=== PATIENT | male | born 1985 | race Caucasian/White ===

== ENCOUNTER 2016-07-23 19:11 | Observation (INO) | payer OTHER, BC ==
--- NOTE | 2016-07-23 19:59 | ED ---
General Adult HPI - General Chief complaint: Eye Problems Stated complaint: accidental overdose Time Seen by Provider: 07/23/16 19:37 Source: patient, RN notes reviewed Mode of arrival: ambulatory Limitations: no limitations - History of Present Illness Initial comments: Patient 31-year-old male who presents emergency room today with a chief complaint of accidental ingestion of antifreeze. Patient does admit that he was helping a friend work on a car when one of the clips broke and antifreeze and got into his eyes and also into his nose and his mouth. He states he did swallow one mouthful of antifreeze. Patient does admit that he try to wash out his eyes. He states he called poison neutral was directed to the emergency room. Patient does admit that she's has burning to his eyes and is very thirsty. He denies any other complaints or symptoms. Patient denies any recent fever, chills, shortness of breath, chest pain, back pain, abdominal pain, nausea or vomiting, numbness or tingling, dysuria or hematuria, constipation or diarrhea, headaches or visual changes, or any other complaints. - Related Data Home Medications Medication Instructions Recorded Confirmed Fluticasone Nasal [place] [Flonase 1 spray EA NOSTRIL BID PRN 07/23/16 07/23/16 Nasal Ring[place]] Loperamide [Imodium] 2 mg PO QID PRN 07/23/16 07/23/16 Menthol [Bengay] 1 applic TOPICAL DAILY PRN 07/23/16 07/23/16 Allergies Allergy/AdvReac Type Severity Reaction Status Date / Time No Known Allergies Allergy Verified 07/23/16 21:23 Review of Systems ROS Statement: Those systems with pertinent positive or pertinent negative responses have been documented in the HPI. ROS Other: All systems not noted in ROS Statement are negative. Past Medical History Past Medical History: No Reported History Additional Past Medical History / Comment(s): "Digestive issues" History of Any Multi-Drug Resistant Organisms: MRSA Date of last positivie culture/infection: 2005 MDRO Source:: hand Past Surgical History: Adenoidectomy, Orthopedic Surgery, Tonsillectomy Additional Past Surgical History / Comment(s): Nose Past Psychological History: Anxiety, Depression, PTSD Smoking Status: Current every day smoker Past Alcohol Use History: None Reported Past Drug Use History: Marijuana General Exam - General Exam Comments Initial Comments: General: The patient is awake and alert, in no distress, and does not appear acutely ill. Eye: Pupils are equal, round and reactive to light, extra-ocular movements are intact. No nystagmus. There is normal conjunctiva bilaterally. No signs of icterus. Ears, nose, mouth and throat: There are moist mucous membranes and no oral lesions. Neck: The neck is supple, there is no tenderness or JVD. Cardiovascular: There is a regular rate and rhythm. No murmur, rub or gallop is appreciated. Respiratory: Lungs are clear to auscultation, respirations are non-labored, breath sounds are equal. No wheezes, stridor, rales, or rhonchi. Gastrointestinal: Soft, non-distended, non-tender abdomen without masses or organomegaly noted. There is no rebound or guarding present. No CVA tenderness. Bowel sounds are unremarkable. Musculoskeletal: Normal ROM, no tenderness. Strength 5/5. Sensation intact. Pulses equal bilaterally 2+. Neurological: A&O x 3. CN II-XII intact, There are no obvious motor or sensory deficits. Coordination appears grossly intact. Speech is normal. Skin: Skin is warm and dry and no rashes or lesions are noted. Psychiatric: Cooperative, appropriate mood & affect, normal judgment. Limitations: no limitations Course Vital Signs 07/23/16 07/23/16 07/23/16 19:21 21:16 21:40 Temperature 98.0 F 98.9 F Pulse Rate 100 115 H 131 H Respiratory 18 18 20 Rate Blood Pressure 155/100 162/84 162/84 O2 Sat by Pulse 99 100 100 Oximetry 07/23/16 23:28 Temperature Pulse Rate 109 H Respiratory 18 Rate Blood Pressure 147/83 O2 Sat by Pulse 99 Oximetry - Reevaluation(s) Reevaluation #1: 07/23/16 19:55 did discuss case with poison control. They recommend starting Antizol here in the emergency room at 15 mg/kg. Recommends sending a toxic alcohol panel which is a send out panel and has been communicated to the lab. They state they will send it in approximately we will have results in 4-5 hours. poison control recommends starting Antizol which they state will give us 12 hours of coverage waiting for ethylene glycol panel to return. Patient has been flushed with a Tai's lens with both eyes. EKG Findings - EKG Comments: EKG Findings:: EKG performed at 2123: Shows sinus tachycardia 110 bpm. NM interval 140. QRS 90. QT/QTc is 330/446. No acute ST changes. Medical Decision Making - Medical Decision Making Patient's left and right eye pH checked his 7.0. The eyes were also stained with fluorescein shows no abrasions or foreign bodies. Patient's labs been reviewed here. Still waiting for ethylene glycol level. At this time is currently pending waiting for transfer to another lab. Patient case discussed in detail with attending physician Dr. Leos. At this time patient will be continued on Antizol until ethlyl Glycol results. Case was discussed with Maureen parent coach who will admit for Dr. Lambert group. - Lab Data Result diagrams: 07/23/16 20:50 07/23/16 20:50 Lab Results 07/23/16 07/23/16 Range/Units 20:50 20:50 WBC 7.9 (3.8-10.6) k/uL RBC 5.30 (4.30-5.90) m/uL Hgb 16.6 (13.0-17.5) gm/dL Hct 46.3 (39.0-53.0) % MCV 87.3 (80.0-100.0) fL MCH 31.3 (25.0-35.0) pg MCHC 35.9 (31.0-37.0) g/dL RDW 12.9 (11.5-15.5) % Plt Count 266 (150-450) k/uL Neutrophils % 55 % Lymphocytes % 35 % Monocytes % 8 % Eosinophils % 1 % Basophils % 1 % Neutrophils # 4.3 (1.3-7.7) k/uL Lymphocytes # 2.7 (1.0-4.8) k/uL Monocytes # 0.6 (0-1.0) k/uL Eosinophils # 0.1 (0-0.7) k/uL Basophils # 0.0 (0-0.2) k/uL Sodium 136 L (137-145) mmol/L Potassium 3.7 (3.5-5.1) mmol/L Chloride 101 (98-107) mmol/L Carbon Dioxide 23 (22-30) mmol/L Anion Gap 12 mmol/L BUN 10 (9-20) mg/dL Creatinine 1.00 (0.66-1.25) mg/dL Est GFR (MDRD) Af Amer >60 (>60 ml/min/1.73 sqM) Est GFR (MDRD) Non-Af >60 (>60 ml/min/1.73 sqM) Glucose 92 (74-99) mg/dL Calcium 9.8 (8.4-10.2) mg/dL Total Bilirubin 1.2 (0.2-1.3) mg/dL AST 29 (17-59) U/L ALT 35 (21-72) U/L Alkaline Phosphatase 81 (38-126) U/L Total Protein 8.3 H (6.3-8.2) g/dL Albumin 5.1 H (3.5-5.0) g/dL Disposition Clinical Impression: Ethylene glycol poisoning Disposition: ADMITTED IP TO THIS HOSP Condition: Stable Referrals: Hayden Griffith DO [Primary Care Provider] - 1-2 days Time of Disposition: 23:01
[2016-07-23] MEDS ORDERED: FOMEPIZOLE 1 GM/ML 1.5 ML VIAL IV STA (20:11)
[2016-07-23] MEDS ORDERED: SODIUM CHLORIDE 0.9% IV ONE (20:30)
[2016-07-23] MEDS ORDERED: FOMEPIZOLE 1 GM in SODIUM CHLORIDE 0.9% 100 ML IV ONE (20:30)
[2016-07-23] MEDS ORDERED: FOMEPIZOLE IV ONE (20:30)
[2016-07-23 21:08] LABS: Basophils % (A) 1 %; CH 32.6; CHCM 37.4; Eosinophils # (A) 0.1 k/uL (0-0.7); Eosinophils % (A) 1 %; HCT 46.3 % (39.0-53.0); HDW 2.49; HGB 16.6 gm/dL (13.0-17.5); Luc # (Auto) 0.14; Luc % (Auto) 2; Lymphocytes # (A) 2.7 k/uL (1.0-4.8); Lymphocytes % (A) 35 %; MCH 31.3 pg (25.0-35.0); MCHC 35.9 g/dL (31.0-37.0); MCV 87.3 fL (80.0-100.0); Mean Platelet Volume 6.8; Monocytes # (A) 0.6 k/uL (0-1.0); Monocytes % (A) 8 %; Neutrophils # (A) 4.3 k/uL (1.3-7.7); Neutrophils % (A) 55 %; RDW 12.9 % (11.5-15.5); WBC 7.9 k/uL (3.8-10.6); WBC (Perox) 7.82
[2016-07-23] MEDS ORDERED: SODIUM CHLORIDE 0.9% 1,000 ML IV STA (21:13)
[2016-07-23 21:17] LABS: ALT 35 U/L (21-72); AST 29 U/L (17-59); Alkaline Phosphatase 81 U/L (38-126); Anion Gap 12 mmol/L; Blood Urea Nitrogen 10 mg/dL (9-20); Calcium 9.8 mg/dL (8.4-10.2); Carbon Dioxide 23 mmol/L (22-30); Chloride 101 mmol/L (98-107); Glucose 92 mg/dL (74-99); Non-African American GFR(MDRD) >60 (>60 ml/min/1.73 sqM); Potassium 3.7 mmol/L (3.5-5.1); Sodium 136 mmol/L (137-145); Total Bilirubin 1.2 mg/dL (0.2-1.3); Total Protein 8.3 g/dL (6.3-8.2)
[2016-07-23] MEDS ORDERED: NALOXONE 0.4 MG/ML 1 ML VIAL IV PRN (23:03)
[2016-07-23] MEDS ORDERED: ONDANSETRON 4 MG/2 ML VIAL IVP PRN (23:03)
[2016-07-23] MEDS ORDERED: LORazepam 2 MG/ML SYRINGE IV PRN (23:03)
[2016-07-23] MEDS: SODIUM CHLORIDE 0.9% 1,000 ML IV ONE (23:27)
[2016-07-24 00:39] VITALS: RESP 16
[2016-07-24 01:00] VITALS: BMI 22.7
[2016-07-24] MEDS ORDERED: PNEUMOCOCCAL VACC-PNEUMOVAX 23 25 MCG/0.5 ML VIAL IM ONE (02:05)
[2016-07-24] MEDS: SODIUM CHLORIDE 0.9% 1,000 ML IV ONE (02:26)
[2016-07-24 07:13] LABS: Mis test requested (Blood) Toxic Alcohol Panel
[2016-07-24 07:13] LABS: Basophils % (A) 1 %; CH 31.6; CHCM 34.7; Eosinophils # (A) 0.1 k/uL (0-0.7); Eosinophils % (A) 2 %; HCT 44.5 % (39.0-53.0); HDW 2.34; Luc # (Auto) 0.11; Luc % (Auto) 2; Lymphocytes # (A) 2.4 k/uL (1.0-4.8); Lymphocytes % (A) 37 %; MCH 30.9 pg (25.0-35.0); MCHC 33.8 g/dL (31.0-37.0); MCV 91.4 fL (80.0-100.0); Mean Platelet Volume 6.9; Monocytes # (A) 0.4 k/uL (0-1.0); Monocytes % (A) 7 %; Neutrophils # (A) 3.4 k/uL (1.3-7.7); Neutrophils % (A) 53 %; RBC 4.86 m/uL (4.30-5.90); RDW 13.1 % (11.5-15.5); WBC 6.5 k/uL (3.8-10.6); WBC (Perox) 6.44
[2016-07-24 07:21] LABS: ALT 34 U/L (21-72); AST 24 U/L (17-59); Alkaline Phosphatase 56 U/L (38-126); Anion Gap 8 mmol/L; Blood Urea Nitrogen 12 mg/dL (9-20); Calcium 8.7 mg/dL (8.4-10.2); Carbon Dioxide 23 mmol/L (22-30); Chloride 110 mmol/L (98-107); Glucose 90 mg/dL (74-99); Non-African American GFR(MDRD) >60 (>60 ml/min/1.73 sqM); Potassium 4.7 mmol/L (3.5-5.1); Sodium 141 mmol/L (137-145); Total Protein 6.8 g/dL (6.3-8.2)
[2016-07-24] MEDS ORDERED: FOMEPIZOLE IV SCH (09:00)
[2016-07-24] MEDS ORDERED: SODIUM CHLORIDE 0.9% IV SCH (09:00)
[2016-07-24] MEDS ORDERED: FOMEPIZOLE 1 GM/ML 1.5 ML VIAL IV SCH (09:00)
[2016-07-24] MEDS ORDERED: ACETAMINOPHEN TAB 500 MG TAB PO STA (12:25)
[2016-07-24 16:21] VITALS: BP 139/79; PULSE 85; TEMP 98.2
--- NOTE | 2016-07-24 21:18 | HP ---
DATE OF ADMISSION: 07/23/2016 CHIEF COMPLAINT: Accidental overdose of antifreeze. HISTORY OF ILLNESS: Mr. Doty is a 31-year-old male without significant past medical history. He came to the ER with accidental ingestion of antifreeze. Patient apparently had been working and was helping a friend replacing a water pump; suddenly it blew open and he was under the car and something was gushing into his mouth and his nose. He states that he did swallow one mouthful of antifreeze. The patient tried to wash his mouth and eyes. He called Poison Control, who directed him to the ER. Patient did have some burning sensation in his eyes and felt very thirsty. Otherwise, patient denied any recent illnesses. No sick contacts at home. Patient denied any intentional overdose. No hematuria or dysuria. No abdominal pain. No headache or dizziness or lightheadedness. All other review of systems are negative except as above. Patient did not have an elevated ethylene glycol level in the serum screen. PAST MEDICAL HISTORY: None except smoking. PAST SURGICAL HISTORY: 1. Adenoidectomy. 2. Orthopedic surgery. 3. Nose surgery. 4. Tonsillectomy. PSYCHOSOCIAL HISTORY: Anxiety, depression, PTSD. SOCIAL HISTORY: Patient is currently an everyday smoker; smokes 1 pack per day. Occasional alcohol use. Denied any drugs. Patient does use marijuana. ALLERGIES: NO KNOWN DRUG ALLERGIES. FAMILY HISTORY: Denied any history of hypertension, diabetes mellitus or premature heart disease in the family. No home medications except nasal spray, Imodium p.r.n. and BenGay topically p.r.n. PHYSICAL EXAMINATION: A 31-year-old male lying in the bed comfortably. Awake, alert, oriented x3. Appears in no distress. VITALS: Blood pressure is 142/80. Pulse is 111, respiration 18, temperature afebrile, pulse ox 97% on room air. HEENT: Atraumatic, normocephalic. Neck is supple. No JVD. CVS: S1, S2 heard. No murmurs. No gallop. No rub. LUNGS: Bilateral air entry is present. No wheezing. No crackles. Non-labored breathing. ABDOMEN: Soft, nontender. Bowel sounds present. SELF CONTAINED [employer] TE[employer]ER: Awake, alert, oriented x3. No focal deficit. Cranial nerves grossly intact. EXTREMITIES: No edema. Pulses palpable bilaterally. No clubbing or cyanosis. PSYCHIATRIC: Cooperative. SKIN: Patient does have multiple tattoo markings. LABORATORY DATA: WBC 7.9, hemoglobin 16.6, platelets 266. Sodium 136, potassium 3.7, chloride 101, bicarb 23. BUN 10, creatinine 1.0. Albumin 3.1. Toxic alcohol panel showed negative ethanol, methanol, isopropyl and acetone as well as ethylene glycol. EKG: Sinus tachycardia. IMPRESSION: 1. Accidental overdose of antifreeze/ethylene glycol. 2. Nicotine addiction. 3. Anxiety, depression, post-traumatic stress disorder history. DISCUSSION AND PLAN: Patient will be continued on telemetry monitoring. Continue with IV fluids. Continue to monitor the patient and treat symptomatically at this time. His ethylene glycol level is negative in the serum. Patient will be started on diet and anticipate discharge soon.
--- NOTE | 2016-07-28 14:12 | DS ---
DATE OF ADMISSION: 07/23/2016 DATE OF DISCHARGE: 07/24/2016 DISCHARGE DIAGNOSES: 1. Accidental overdose / spill of ethylene glycol while working on the car. 2. Nicotine addiction. 3. Anxiety, depression and PTSD. HOSPITAL COURSE: 31-year-old male admitted to the hospital with accidental ingestion of ( ) glycol while he was working on repairing the car. Patient admits to drinking a mouth full of ( ) glycol. Patient was monitored in the hospital and patient had eye wash and no burning of eyes noted at this time. The patient able to tolerate p.o. diet and the patient denied any intentional overdose. No history of suicidal ideation in the past. Otherwise, patient is stable to be discharged home. Laboratory showed no abnormality and serum alcohol screen showed negative level of ( ) glycol. The patient will be discharged home in stable condition. DISCHARGE PHYSICAL EXAMINATION: This is a 31 -year-old male lying in bed comfortably, awake, alert, oriented, x3. He appears to be in no apparent distress. VITALS: Blood pressure is 139/79. Pulse 85, respiratory rate 16, temperature afebrile, pulse ox 95% on room air. Laboratory data reviewed. Discharge physical examination done. Discharge medications include: 1. Fluticasone nasal spray 1 spray each nostril b.i.d. p.r.n. 2. Loperamide 2 mg p.o. q.i.d. p.r.n. for diarrhea. 3. Menthol one application topically daily p.r.n. for pain. Home with self-care. Activity as tolerated. Regular diet. Follow with Dr. Hayden Griffith in one to two days. [facility] CENTERAurelio
== END 2016-07-24 17:23 | disposition home or self-care (01) ==
LOC: EC 19:11 → 3OBS 23:13
PROVIDERS: ADMIT Hospitalist; ATTEND Hospitalist
DX: T51.8X1A Toxic effect of other alcohols, accidental (unintentional), initial encounter (principal); Z86.14 Personal history of Methicillin resistant Staphylococcus aureus infection; F17.200 Nicotine dependence, unspecified, uncomplicated; F32.9 Major depressive disorder, single episode, unspecified; F43.10 Post-traumatic stress disorder, unspecified; F41.9 Anxiety disorder, unspecified; T15.92XA Foreign body on external eye, part unspecified, left eye, initial encounter; T15.91XA Foreign body on external eye, part unspecified, right eye, initial encounter; Y93.89 Activity, other specified
CPT/HCPCS: 96361 ×3; 96365; 99285; 36415; 93005; 82693; 80053 ×2; 85025 ×2; 84600; G0378 ×2; J2060; J2405; J1451

== ENCOUNTER 2020-03-21 16:51 | Emergency (ER) | payer BC, OTHER ==
--- NOTE | 2020-03-21 18:16 | US ---
EXAMINATION TYPE: US venous doppler duplex LE LT DATE OF EXAM: 03/21/2020 6:05 PM COMPARISON: NONE CLINICAL HISTORY: possible dvt. Left leg injury 6 weeks ago, no h/o dvt SIDE PERFORMED: Left TECHNIQUE: The lower extremity deep venous system is examined utilizing real time linear array sonog corrine with graded compression, doppler sonography and color-flow sonography. VESSELS IMAGED: Common Femoral Vein Deep Femoral Vein Greater Saphenous Vein * Femoral Vein Popliteal Vein Small Saphenous Vein * Proximal Calf Veins (* superficial vessels) Findings: Negative for direct or indirect evidence of DVT. In addition, assessment of the soft tissue s lateral to the ankle and the soft tissues of the robison just below knee has pain and swelling were un remarkable. Grayscale, color doppler, spectral doppler imaging performed of the deep veins of the lower extremiti es. There is normal flow, compressibility, vascular waveforms. Impression: 1. Negative for DVT, left lower extremity. 2. No sonographic findings to correlate with the patient's signs and symptoms.
--- NOTE | 2020-03-21 19:24 | ED ---
General Adult HPI - General Chief complaint: Extremity Injury, Lower Stated complaint: [facility] Time Seen by Provider: 03/21/20 18:26 Source: patient, RN notes reviewed Mode of arrival: ambulatory Limitations: no limitations - History of Present Illness Initial comments: 35-year-old male presents to the emergency room for a chief complaint of left leg pain. Patient states that about one month ago he fell off of a roof. He was evaluated at that time and had x-rays of the left leg which were unremarkable. Patient states almost immediately after his fall he developed this swelling in the left leg and pain near the left ankle and knee. He states he was supposed to follow-up with an orthopedic physician however he could not get through to them. He finally followed up at the [facility] today and they recommended he come to the emergency room for an ultrasound. Patient denies any fevers.Patient has no other complaints at this time including shortness of breath, chest pain, abdominal pain, nausea or vomiting, headache, or visual changes. - Related Data Home Medications Medication Instructions Recorded Confirmed Ibuprofen [Motrin Ib] 800 mg PO Q8H PRN 03/21/20 03/21/20 Previous Rx's Medication Instructions Recorded Cephalexin [Keflex] 500 mg PO Q6HR 10 Days #40 cap 03/21/20 Allergies Allergy/AdvReac Type Severity Reaction Status Date / Time No Known Allergies Allergy Verified 03/21/20 20:23 Review of Systems ROS Statement: Those systems with pertinent positive or pertinent negative responses have been documented in the HPI. ROS Other: All systems not noted in ROS Statement are negative. Past Medical History Past Medical History: GERD/Reflux, Hypertension, Osteoarthritis (OA) Additional Past Medical History / Comment(s): "Digestive issues" History of Any Multi-Drug Resistant Organisms: MRSA Date of last positivie culture/infection: 2005 MDRO Source:: hand Past Surgical History: Adenoidectomy, Orthopedic Surgery, Tonsillectomy Additional Past Surgical History / Comment(s): Nose- surgery to right hand Past Anesthesia/Blood Transfusion Reactions: Motion Sickness Past Psychological History: Anxiety, Depression, PTSD Smoking Status: Former smoker Past Alcohol Use History: None Reported Past Drug Use History: Marijuana - Past Family History Father Family Medical History: CVA/TIA, Hypertension Mother Family Medical History: Hypertension General Exam Limitations: no limitations General appearance: alert Head exam: Present: atraumatic Eye exam: Present: normal appearance ENT exam: Present: normal exam, mucous membranes moist Neck exam: Present: normal inspection, full ROM. Absent: tenderness Respiratory exam: Present: normal lung sounds bilaterally. Absent: respiratory distress, wheezes, rales, rhonchi, stridor Cardiovascular Exam: Present: regular rate, normal rhythm GI/Abdominal exam: Present: soft, normal bowel sounds. Absent: distended, tenderness, guarding, rebound, rigid Extremities exam: Present: tenderness (Tenderness noted to the dorsum of the left ankle as well as left foot. Tenderness noted to the distal tib-fib as well.), normal capillary refill (Capillary refill less than 2 seconds, DP pulse 2+ in the left lower extremity), other (Patient does have minimal edema noted from below the left knee to the left foot which he states has been consistent. No significant erythema.). Absent: full ROM (pt has full range of motion of the left knee. He has limited plantar and dorsi flexion of the left ankle secondary to pain.) Course Vital Signs 03/21/20 03/21/20 03/21/20 16:59 19:31 20:40 Temperature 98 F 97.9 F Pulse Rate 108 H 103 H 94 Respiratory 18 19 19 Rate Blood Pressure 160/104 161/103 163/107 O2 Sat by Pulse 99 96 98 Oximetry Procedures - Orthopedic Splinting/Casting Injury #1 Side: left Lower Extremity Injury Location: short leg Lower Extremity Immobilizer: posterior splint Additional Comments: Neurovascular status intact Medical Decision Making - Medical Decision Making Vitals are stable. Patient initially somewhat tachycardic. Patient is hypertensive here in the emergency room however is asymptomatic. No chest pain and shortness of breath headache or abdominal pain. States he has a history of hypertension for which she is seeing his doctor. Physical exam is documented and pertinent for edema from below the knee of the left leg to the left foot. Minimal erythema. This started after patient's fall over one month ago and has been persistent. He reports the erythema is not new however there is a small scrape on his robison. Patient has pain with walking on the left ankle. States most of his pain is in the ankle area. DVT ultrasound was negative. X-ray of the left tib-fib, ankle, and foot are negative. Patient was splinted in a short leg splint. Out of precaution and he was started on Keflex for a erythema and a possible early cellulitis. He was splinted in a short leg splint. Dr. Franklin also evaluated the patient and agrees with this treatment plan. He will follow up with orthopedics. Disposition Clinical Impression: Leg pain, left, Hypertension Disposition: HOME SELF-CARE Condition: Good Instructions (If sedation given, give patient instructions): Leg Pain (ED) Additional Instructions: Please take Motrin and Tylenol for pain. Please take Keflex as antibiotic. If pain worsens or you have spreading or streaking redness up your leg you need to return to the emergency room. Otherwise follow-up with orthopedics by calling tomorrow for the earliest appointment. Prescriptions: Cephalexin [Keflex] 500 mg PO Q6HR 10 Days #40 cap Is patient prescribed a controlled substance at d/c from ED?: No Referrals: [facility],Clinic [Primary Care Provider] - 1-2 days Joe Todd MD [STAFF PHYSICIAN] - 1-2 days Time of Disposition: 20:44
[2020-03-21 19:32] VITALS: RESP 19; TEMP 97.9
--- NOTE | 2020-03-21 19:59 | XR ---
PROCEDURE: XR tibia fibula LT - 2V DATE AND TIME: 03/21/2020 6:55 PM CLINICAL INDICATION: PHH; pain after trauma TECHNIQUE: Department protocol COMPARISON: None FINDINGS: There is no fracture or malalignment. The soft tissues are unremarkable. IMPRESSION: NO ACUTE PROCESS.
--- NOTE | 2020-03-21 20:01 | XR ---
PROCEDURE: XR ankle complete LT - 3V DATE AND TIME: 03/21/2020 6:55 PM CLINICAL INDICATION: PHH; pain TECHNIQUE: Department protocol COMPARISON: None FINDINGS: There is no fracture or malalignment. Mortise is intact. Soft tissue swelling about the ank le noted. IMPRESSION: No fracture/malalignment.
--- NOTE | 2020-03-21 20:02 | XR ---
PROCEDURE: XR foot complete LT - 3V DATE AND TIME: 03/21/2020 6:55 PM CLINICAL INDICATION: PHH; pain, fell off roof TECHNIQUE: Department protocol COMPARISON: None FINDINGS: There is no fracture or malalignment. The soft tissues are unremarkable. IMPRESSION: NO ACUTE PROCESS.
[2020-03-21 20:42] VITALS: BP 163/107; PULSE 94
[2020-03-21] MEDS ORDERED: CEPHALEXIN 500MG STARTER PACK 4 CAP BTL PO STA (20:58)
== END 2020-03-21 20:54 | disposition home or self-care (01) ==
LOC: EC 16:51
DX: M79.605 Pain in left leg (principal); I10 Essential (primary) hypertension; Z87.891 Personal history of nicotine dependence
CPT/HCPCS: 29515; 99284

== ENCOUNTER → 2020-05-20 | Outpatient (CLI) | payer OTHER ==
--- NOTE | 2020-05-20 11:28 | XR ---
EXAMINATION TYPE: XR orbit detect foreign body DATE OF EXAM: 05/20/2020 COMPARISON: NONE HISTORY: Possible foreign body within the orbit TECHNIQUE: 3 views submitted FINDINGS: No evidence of metallic foreign body overlying the orbits. Slight nasal septal deviation. C hronic appearing deformity of the tip of the nasal bridge IMPRESSION: No metallic foreign body overlying the orbits.
--- NOTE | 2020-05-20 14:26 | MR ---
EXAMINATION TYPE: MR knee LT wo con DATE OF EXAM: 05/20/2020 COMPARISON: Outside radiograph 05/10/2020 HISTORY: 35-year-old male with left Knee Pain TECHNIQUE: Multiplanar, multisequence imaging of the left knee is performed without IV contrast. FINDINGS: ACL, PCL, MCL, LCL complex appear intact. There is degenerative signal the junction of the posterior horn and body of the medial meniscus. Sign al does not clearly contact either articular surface at this time. Bicompartmental articular cartilage is maintained. Patellofemoral compartment articular cartilage is maintained. Mild edema within the suprapatellar fat pad. Extensor mechanism is intact. Nonspecific anterior infrapatellar soft tissue swelling. Physiologic karen int fluid air no Sotelo's cyst. Normal popliteal artery anatomy in multiple. No suspicious bone marrow replacement. IMPRESSION: 1. Degenerative signal at the junction of the posterior horn and body of the medial meniscus without discrete tear at this time. 2. Mild edema within the suprapatellar fat pad. Findings may be seen with fat pad impingement syndrom e. Clinically correlate. 3. Nonspecific anterior soft tissue swelling.
== END | disposition home or self-care (01) ==
LOC: RADMRIMAIN 10:56
PROVIDERS: ATTEND Orthopaedic Surgery
DX: M17.12 Unilateral primary osteoarthritis, left knee (principal); R60.0 Localized edema
CPT/HCPCS: 70030